=== PATIENT | male | born 1970 | race Caucasian/White ===

== ENCOUNTER 2020-03-25 18:57 | Emergency (ER) | payer MEDICAID ==
[~2020-03-25] VITALS: Ht 180.3 cm; Wt 79.0 kg
[2020-03-25] MEDS ORDERED: SODIUM CHLORIDE 0.9% 1,000 ML IV ONE (19:30)
[2020-03-25 19:31] LABS: BASOPHILS % 0.2 % (0.0-2.0); HEMATOCRIT. 27.9 % (42.0-52.0); HEMOGLOBIN. 9.6 g/dL (14.0-18.0); LYMPHOCYTES % 7.7 % (20.0-50.0); MEAN PLATELET VOLUME 9.8 fl (7.4-10.4); MONOCYTES % 7.8 % (2.0-8.0); NEUTROPHILS % 84.3 % (40.0-76.0); PLATELET 66 x1000/uL (130-400); RED BLOOD CELL COUNT 3.01 mill/uL (4.7-6.1); RED CELL DISTRIBUTION WIDTH 13.6 % (11.6-14.6)
[2020-03-25 19:38] LABS: CHLORIDE 101 mEq/L (98-107)
[2020-03-25 19:42] LABS: ETHANOL BLOOD < 10 mg/dL
[2020-03-25] MEDS ORDERED: OLANZAPINE 10 MG/VIAL IM NR (21:30)
[2020-03-25] MEDS ORDERED: LORAZEPAM 2MG/ML CPJ IV NR (21:30)
[2020-03-26 00:24] LABS: *AMPHETAMINES SCREEN URINE PRESUMTIVE POSITIVE (NEGATIVE); *BARBITURATES SCREEN URINE NEGATIVE (NEGATIVE); *BENZODIAZEPINES SCREEN URINE NEGATIVE (NEGATIVE); *COCAINE SCREEN URINE PRESUMTIVE POSITIVE (NEGATIVE); METHADONE URINE SCREEN NEGATIVE (NEGATIVE); OPIATES URINE SCREEN NEGATIVE (NEGATIVE)
[2020-03-26 00:25] LABS: CANNABINOID URINE SCREEN NEGATIVE (NEGATIVE); PHENCYCLIDINE URINE SCREEN NEGATIVE (NEGATIVE)
[2020-03-26 08:12] VITALS: BP 138/92
== END 2020-03-26 10:30 | disposition home or self-care (01) ==
LOC: ER 18:57
DX: F15.150 Other stimulant abuse with stimulant-induced psychotic disorder with delusions (principal); F14.150 Cocaine abuse with cocaine-induced psychotic disorder with delusions; F16.150 Hallucinogen abuse with hallucinogen-induced psychotic disorder with delusions; R45.851 Suicidal ideations; R46.89 Other symptoms and signs involving appearance and behavior
CPT/HCPCS: 36415; 80053; 80305; 80307; 80320; 80329; 83690; 85025; 96361; 96372; 96374; 99285; J2060; J3490; J7030; G0480